=== PATIENT | male | born 1970 | race Caucasian/White ===

== ENCOUNTER 2018-09-01 09:07 | Outpatient (CLI) | payer OTHER ==
--- NOTE | 2018-09-01 09:42 | ULT ---
ULTRASOUND ABDOMEN COMPLETE: DATE: 09/01/2018 HISTORY: 47-year-old male with elevated liver function tests FINDINGS: Gallbladder: Normal wall thickness. No evidence of pericholecystic fluid, gallstones, or sludge. Liver: Diffusely increased echogenicity, consistent with fatty liver. Common duct caliber: 5 mm. Bilateral kidneys: No hydronephrosis. Parenchymal echogenicity appears diffusely mildly increased. Pancreas: Nonspecific sonographic appearance. Abdominal aorta: No aneurysm Inferior vena cava: Unremarkable where visualized. Spleen: No splenomegaly IMPRESSION: 1) Hepatic steatosis. 2) questionable medical renal disease. Recommend clinical and laboratory correlation..
== END 2018-09-01 09:08 | disposition home or self-care (01) ==
LOC: SCSULT 09:07
PROVIDERS: ATTEND Family Medicine
DX: R74.8 Abnormal levels of other serum enzymes (principal); K76.0 Fatty (change of) liver, not elsewhere classified
CPT/HCPCS: 76700